=== PATIENT | male | born 2000 | race Caucasian/White ===

== ENCOUNTER 2025-03-13 01:40 | Emergency (ER) | payer MEDICAID ==
[~2025-03-13] VITALS: Ht 175.3 cm; Wt 100.0 kg
[2025-03-13 01:55] VITALS: BP 144/95; PULSE 95; O2SAT 98
--- NOTE | 2025-03-13 02:44 | Physician Documentation ---
History of Present Illness ~ Chief Complaint: Headache Stated Complaint: CHEST PAIN/BACK PAIN Time Seen by MD: 02:43 Mode of Arrival: POV HPI Patient presents to the emergency room with multiple medical complaints. Most of concern that has neck pain that has also having significant headache arm pain back pain chest pain. He has had nothing for his symptoms. He states when he stands up he feels like he may pass out. No nausea or vomiting. No fevers Medication Reconciliation Allergies: Coded Allergies: No Known Allergies (Unverified , 03/13/25) Review of Systems ROS All review of systems negative except as per HPI Physical Exam Vital Signs: Heart Rate: 95, Respiratory Rate: 15, BP: 144/95, Pulse Oximetry: 98, Weight: 100.000 Physical Exam General: Patient is awake, alert, oriented x4 in no acute distress Head: Normocephalic and atraumatic. Eyes: Conjunctival normal. EOMI. PERRL. ENT: Mucous membranes moist. Neck: Supple, trachea is midline. No meningismus Chest: Clear to auscultation bilaterally without rales, rhonchi, or wheezes. There is no accessory muscle use or retractions. Cardiac: RRR without murmurs, gallops, or rubs. Abd: Soft, nondistended, nontender, with normoactive bowel sounds. No guarding, rebound, or rigidity. Progress Results/Orders Results/Orders Orders - SAHIL SPARKS MD Chest,Single View (03/13/25 03:30) Completed Orders - SAHIL SPARKS MD Cbc/Diff (03/13/25 02:50) MG (03/13/25 02:50) Chest,Single View (03/13/25 03:30) BMP (03/13/25 02:50) Hs Troponin I W Calculations (03/13/25 02:50) Normal Saline 1000ml (0.9% Sodium Chlori (03/13/25 02:50) Ketorolac Trometh 15mg/Ml Vial (Toradol (03/13/25 02:50) Acetaminophen 1,000mg/100ml Iv (Ofirmev (03/13/25 02:50) Procalcitonin (03/13/25 02:52) Medications Received in ER Medications (Trade) Dose Ordered Sig/Sophie Route PRN Reason Start Time Stop Time Status Last Admin Dose Admin Sodium Chloride 1,000 ml @ 1,000 mls/hr ONCE ONCE IV 03/13/25 02:50 03/13/25 03:49 DC 03/13/25 03:16 1,000 MLS/HR (Toradol injection) 15 mg ONCE ONCE IV 03/13/25 02:50 03/13/25 02:52 DC 03/13/25 03:16 15 MG Acetaminophen 100 ml @ 400 mls/hr ONCE ONCE IV 03/13/25 02:50 03/13/25 03:04 DC 03/13/25 03:16 400 MLS/HR Vital Signs 03/13/25 03/13/25 03/13/25 01:55 02:16 03:16 Pulse 95 Resp 15 16 B/P (MAP) 144/95 Pulse Ox 98 Laboratory Tests Test 03/13/25 01:53 White Blood Count 6.2 Red Blood Count 5.90 Hemoglobin 16.3 Hematocrit 47.5 Mean Corpuscular Volume 80.5 Mean Corpuscular Hemoglobin 27.6 Mean Corpuscular Hemoglobin Concent 34.2 Red Cell Distribution Width 13.7 Platelet Count 231 Mean Platelet Volume 8.7 Neutrophils (%) (Auto) 62.2 Lymphocytes (%) (Auto) 23.8 Monocytes (%) (Auto) 8.3 Eosinophils (%) (Auto) 5.3 Basophils (%) (Auto) 0.4 Neutrophils # (Auto) 3.8 Lymphocytes # (Auto) 1.5 Monocytes # (Auto) 0.5 Eosinophils # (Auto) 0.3 Basophils # (Auto) 0.0 CBC Comment Sodium Level 140 Potassium Level 4.0 Chloride Level 106 Carbon Dioxide Level 24.0 Anion Gap 10 Blood Urea Nitrogen 17 Creatinine 0.98 Estimated GFR/1.73 m2 > 90 BUN/Creatinine Ratio 17.3 Glucose Level 106 H Calcium Level 9.1 Magnesium Level 2.0 Troponin I High Sensitivity 4 Albumin 4.0 Procalcitonin < 0.05 Chemistry Comments EKG/XRAY/CT/US/VASC/MRI EKG : Additional Comment EKG interpreted by myself shows time of 0148, rate 103, sinus tachycardia, normal axis, no ST changes, T-wave inversion in leads three and AVF. Medical Decision Making Additional information obtaine: old records Findings Patient presented to the emergency room with body aches and headache. Differentials include but are not limited to viral syndrome, meningitis, intracranial bleed, headache, sepsis therefore emergent labs ordered. Labs reassuring. No meningismus demonstrate and he had not feel he requires lumbar puncture. He is nontoxic appearing. Although patient mentioned to triage nurse that he had that has having the worst headache of his life he also stated that getting his IV today was the worst pain he ever felt and given reassuring labs known in meningismus age with no head trauma and he had not feel he requires a CT scan especially in the light of the other myalgias he is feeling. Symptoms likely viral in nature given his constellation of symptoms. Ibuprofen and Tylenol discussed as well as drinking plenty of fluids. I do believe that has a bit dehydrated based upon his description of feeling faint while standing with a heart rate of 95 upon arrival. Differential Dx:Considerations: Include: ADAIR-Cluster, ADAIR-Migraine, ADAIR- Hypertensive, ADAIR-Muscular contraction, ADAIR-Post lumbar puncture, Carbon monoxide toxicity, Close head injuyr, CVA, Fever induced, Hemorrhage-Epidural, Hemorrhage-Intracerebral, Hemorrhage-Subarachnoid, Hemorrhage-Subdural, Mass lesion, Meningitis, Post-traumtic, Pseudotumor cerebri, Sinusitis, Temporal arteritis, Trigeminal neuralgia, Other Departure Disposition: 01 HOME / SELF CARE / HOMELESS Impression: Primary Impression: Myalgia Additional Impression: Headache Condition: Stable Discharge Instructions: Tension Headache, Adult Additional Instructions: Ibuprofen and Tylenol along with pulling of fluids as discussed Referrals: NO PRIMARY CARE PROVIDER (PCP) Prescriptions Ibuprofen (Ibuprofen) 800 Mg Tablet 1 TAB PO Q8H for pain, #30 TAB 0 Refills Prov: SAHIL SPARKS MD 03/13/25 Signature Scribe Signature: No scribe Attestation: The note accurately reflects work and decisions made by me.Sahil Sparks MD 03/13/25 03:57 SAHIL SPARKS MD Mar 13, 2025 02:44
[2025-03-13] MEDS: acetaminophen 1,000mg/100ml IV 100 ML IV ONE (02:50)
[2025-03-13] MEDS: ketorolac trometh 15mg/ml vial 15 MG/ML ML IV ONE (02:50)
[2025-03-13 03:05] LABS: CREATININE 0.98 MG/DL (0.60-1.10); TOTAL CARBON DIOXIDE 24.0 MMOL/L (24-32); eCRCL 117 ML/MIN; eGFR > 90 ML/MIN
[2025-03-13 03:07] LABS: MEAN PLATELET VOLUME 8.7 FL (7.4-10.4); RED CELL DISTRIBUTION WIDTH 13.7 % (11.5-14.5)
[2025-03-13] MEDS: normal saline 1000ml 1,000 ML IV ONE (03:16)
[2025-03-13] MEDS ORDERED: IBUP-1986 PO (03:56)
--- NOTE | 2025-03-13 04:02 | RADIOLOGY REPORT ---
CHEST RADIOGRAPH INDICATION: CP TECHNIQUE: Single frontal view of the chest was obtained COMPARISON: None FINDINGS: Lines and Tubes: None Lungs: Clear Pleura: No effusion. No pneumothorax. Cardiomediastinal contours: Unremarkable Bones: Unremarkable IMPRESSION: 1. No acute disease.
--- NOTE | 2025-03-13 08:08 | ELECTROCARDIOGRAPH REPORT ---
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 Shamar Albarado Measurements Intervals [place] Rate: 103 P: 31 NC: 129 QRS: 98 QRSD: 80 T: -29 QT: 319 QTc: 418 Interpretive Statements Sinus tachycardia Borderline right axis deviation Repol abnrm suggests ischemia, inferior leads Borderline ST elevation, lateral leads Electronically Signed On 03-20-2025 0:23:[address] Shamar Albarado Please click the below link to view image of tracing.
== END 2025-03-13 04:17 | disposition home or self-care (01) ==
LOC: ER 01:41
DX: M79.10 Myalgia, unspecified site (principal); R51.9 Headache, unspecified
CPT/HCPCS: 36415; 71045; 80048; 83735; 84145; 84484; 85025; 93005; 96360; 99285; J7030; J0131; J1885